=== PATIENT | female | born 1985 | race Caucasian/White ===

== ENCOUNTER 2018-06-20 13:00 | Emergency (ER) | payer SELFPAY ==
[2018-06-20] MEDS ORDERED: ONDANSETRON HCL INJ/PF 4 MG/2 ML SDV IV ONE (14:53)
[2018-06-20] MEDS ORDERED: KETOROLAC TROMETHAMINE INJ/PF 30 MG/1 ML SDV IV ONE (14:53)
[2018-06-20] MEDS ORDERED: NORMAL SALINE 1000 ML 1,000 ML IV ONE ×2 (14:53→16:52)
--- NOTE | 2018-06-20 14:55 | ER Document Report ---
ED Medical Screen (RME) - General Chief Complaint: Nausea/Vomiting Stated Complaint: VOMITING Time Seen by Provider: 06/20/18 14:50 Notes: 32 years old female with history of chronic low back pain take Percocet took one last night presents today with frontal headache just prior to arrival associated with nausea vomiting vomiting brownish liquid. Multiple times. And also had a bowel movement which was dark brown. Examination by large benign. In my opinion I think she is constipated TRAVEL OUTSIDE OF THE [place] IN LAST 30 DAYS: No - Related Data Allergies/Adverse Reactions: No Known Allergies Allergy (Unverified 06/27/15 13:16) Past Medical History - Social History Chew tobacco use (# tins/day): No Frequency of alcohol use: Rare Drug Abuse: None Renal/ Medical History: Denies: Hx Peritoneal Dialysis Past Surgical History: Reports: Hx Cholecystectomy, Hx Gynecologic Surgery - leep procedure, Hx Oral Surgery - Immunizations Immunizations up to date: Yes Hx Diphtheria, Pertussis, Tetanus Vaccination: Yes Physical Exam - Vital signs Vitals: Temp Pulse Resp BP Pulse Ox 97.4 F 69 16 110/60 100 06/20/18 13:25 06/20/18 13:25 06/20/18 13:25 06/20/18 13:25 06/20/18 13:25 Course - Vital Signs Vital signs: Temp Pulse Resp BP Pulse Ox 97.4 F 69 16 110/60 100 06/20/18 13:25 06/20/18 13:25 06/20/18 14:44 06/20/18 13:25 06/20/18 13:25 Doctor's Discharge - Discharge Referrals: SHOLA WILKES FNP [Primary Care Provider] - Follow up as needed
[2018-06-20 15:30] LABS: ABSOLUTE LYMPHOCYTES (AUTO) 1.3 10^3/uL (0.5-4.7); ABSOLUTE MONOCYTES (AUTO) 0.3 10^3/uL (0.1-1.4); ABSOLUTE NEUT (AUTO) 12.5 10^3/uL (1.7-8.2); BASOPHILS % (AUTO) 0.1 % (0-2); EOSINOPHILS % (AUTO) 0.1 % (0-6); HEMATOCRIT 38.6 % (36.0-47.0); HEMOGLOBIN 13.5 g/dL (12.0-15.5); LYMPHOCYTES % (AUTO) 9.5 % (13-45); MEAN CORPUSCULAR HEMOGLOBIN 30.7 pg (27.0-33.4); MEAN CORPUSCULAR HGB CONC 34.9 g/dL (32.0-36.0); MEAN CORPUSCULAR VOLUME 88 fl (80-97); MONOCYTES % (AUTO) 2.4 % (3-13); PLATELET COUNT 302 10^3/uL (150-450); RED BLOOD COUNT 4.39 10^6/uL (3.72-5.28); RED CELL DISTRIBUTION WIDTH 12.9 % (11.5-14.0); SEGMENTED NEUTROPHILS % (AUTO) 87.9 % (42-78); TOTAL CELLS COUNTED % (AUTO) 100 %; WHITE BLOOD COUNT 14.2 10^3/uL (4.0-10.5)
--- NOTE | 2018-06-20 15:36 | RADIOLOGY REPORT (SQ) ---
EXAM DESCRIPTION: KUB/ABDOMEN (SINGLE VIEW) COMPLETED DATE/TIME: 06/20/2018 3:28 pm REASON FOR STUDY: Abdominal pain COMPARISON: None. NUMBER OF VIEWS: One view. TECHNIQUE: Supine radiographic image of the abdomen acquired. LIMITATIONS: None. FINDINGS: BOWEL GAS PATTERN: Normal bowel gas pattern. No dilated loops. CALCIFICATIONS: No suspicious calcifications. Scattered pelvic phleboliths. SOFT TISSUES: No gross mass or suggestion of organomegaly. HARDWARE: Intrauterine device overlies pelvis. Prior cholecystectomy. BONES: No acute fracture. No worrisome bone lesions. OTHER: No other significant finding. IMPRESSION: No evidence of acute intra-abdominal/pelvic process. TECHNICAL DOCUMENTATION: JOB ID: [id number] [employer]- All Rights Reserved Reading location - IP/workstation name: [email or web address]
[2018-06-20 15:48] LABS: APPEARANCE,URINE SLIGHTLY-CLOUDY; BILIRUBIN,URINE NEGATIVE (NEGATIVE); COLOR,URINE YELLOW; GLUCOSE, URINE NEGATIVE (NEGATIVE); KETONES,URINE 20 mg/dL (NEGATIVE); LEUKOCYTE ESTERASE,URINE NEGATIVE (NEGATIVE); NITRITE,URINE NEGATIVE (NEGATIVE); PROTEIN,URINE NEGATIVE (NEGATIVE); URINE SPECIFIC GRAVITY 1.029; UROBILINOGEN,URINE NEGATIVE mg/dL (<2.0)
[2018-06-20 15:57] LABS: ALANINE AMINOTRANSFERASE 26 U/L (9-52); ALBUMIN 4.7 g/dL (3.5-5.0); ALKALINE PHOSPHATASE 95 U/L (38-126); ANION GAP 15 (5-19); ASPARTATE AMINO TRANSFERASE 22 U/L (14-36); BILIRUBIN,DIRECT 0.2 mg/dL (0.0-0.4); BILIRUBIN,TOTAL 0.6 mg/dL (0.2-1.3); BLOOD UREA NITROGEN 11 mg/dL (7-20); CALCIUM 9.3 mg/dL (8.4-10.2); CARBON DIOXIDE 28 mmol/L (22-30); CHLORIDE 101 mmol/L (98-107); GLUCOSE 113 mg/dL (75-110); LIPASE 98.5 U/L (23-300); SODIUM 143.7 mmol/L (137-145); TOTAL PROTEIN 7.5 g/dL (6.3-8.2)
[2018-06-20 16:09] LABS: URINE AMPHETAMINES SCREEN NEGATIVE; URINE BARBITURATES SCREEN NEGATIVE; URINE BENZODIAZEPINES SCREEN NEGATIVE; URINE COCAINE SCREEN NEGATIVE; URINE MARIJUANA (THC) SCREEN NEGATIVE; URINE METHADONE SCREEN NEGATIVE; URINE PHENCYCLIDINE SCREEN NEGATIVE
--- NOTE | 2018-06-20 16:59 | ER Document Report ---
ED General - General Chief Complaint: Nausea/Vomiting Stated Complaint: VOMITING Time Seen by Provider: 06/20/18 14:50 Notes: Patient is a 32-year-old female presents to the emergency department complaining of a frontal headache, dizziness and nausea. Patient states her headache started this morning and she vomited a total of 8 times. Patient is denying any blood in her emesis. Patient is denying diarrhea but does states she had a "hard poop". Patient states her stool is black in color. Patient states she did take Pepto-Bismol 3 days ago for a "upset stomach." Patient denies fever, URI symptoms, chest pain, shortness of breath. Patient denies any abdominal pain. States she only feels nauseated. Past medical history: Chronic back pain Medications: Percocet, Mirena IUD Allergies: None TRAVEL OUTSIDE OF THE [place] IN LAST 30 DAYS: No - Related Data Allergies/Adverse Reactions: No Known Allergies Allergy (Unverified 06/27/15 13:16) Past Medical History - General Information source: Patient - Social History Smoking Status: Never Smoker Chew tobacco use (# tins/day): No Frequency of alcohol use: Rare Drug Abuse: None Family History: Arthritis, CAD, CVA, DM, Hyperlipidemia, Hypertension, Malignancy, Thyroid Disfunction Patient has suicidal ideation: No Patient has homicidal ideation: No Renal/ Medical History: Denies: Hx Peritoneal Dialysis Past Surgical History: Reports: Hx Cholecystectomy, Hx Gynecologic Surgery - leep procedure, Hx Oral Surgery - Immunizations Immunizations up to date: Yes Hx Diphtheria, Pertussis, Tetanus Vaccination: Yes Review of Systems - Review of Systems Constitutional: See HPI EENT: See HPI Cardiovascular: See HPI Respiratory: See HPI Gastrointestinal: See HPI Genitourinary: denies: Burning, Dysuria, Discharge, Urgency, Retention Female Genitourinary: See HPI Musculoskeletal: No symptoms reported Skin: No symptoms reported Hematologic/Lymphatic: No symptoms reported Neurological/Psychological: See HPI Physical Exam - Vital signs Vitals: Temp Pulse Resp BP Pulse Ox 97.4 F 69 16 110/60 100 06/20/18 13:25 06/20/18 13:25 06/20/18 13:25 06/20/18 13:25 06/20/18 13:25 - Notes Notes: GENERAL: Alert, interacts well. No acute distress. HEAD: Normocephalic, atraumatic. EYES: Pupils equal, round, and reactive to light. Extraocular movements intact. ENT: Oral mucosa moist, tongue midline. NECK: Full range of motion. Supple. Trachea midline. LUNGS: Clear to auscultation bilaterally, no wheezes, rales, or rhonchi. No respiratory distress. HEART: Regular rate and rhythm. No murmur ABDOMEN: Obese soft, non-tender. Non-distended. Bowel sounds present in all 4 quadrants. EXTREMITIES: Moves all 4 extremities spontaneously. No edema, normal radial and dorsalis pedis pulses bilaterally. No cyanosis. BACK: no cervical, thoracic, lumbar midline tenderness. No saddle anesthesia, normal distal neurovascular exam. No CVA tenderness bilaterally NEUROLOGICAL: Alert and oriented x3. Normal speech. cranial nerves II through XII grossly intact PSYCH: Normal affect, normal mood. SKIN: Warm, dry, normal turgor. No rashes or lesions noted. Course - Re-evaluation Re-evalutation: 06/20/18 16:57 Patient had already been treated with Toradol and Zofran, a liter of normal saline solution prior to my examination. Patient states she no longer has a headache and no longer feels nausea. Patient states she has not tried to eat or drink something. Discussed with patient her black stools could be from the use of Pepto-Bismol. Also discussed black stools could be from internal bleeding. Patient agrees to a rectal exam with guaiac occult stool. Rectal exam reveals no obvious fissures, no internal or external hemorrhoids seen or felt. Patient's specific gravity is 1.029. A second liter of normal saline solution fluid ordered in the emergency room. 06/20/18 16:59 Laboratory work reveals a leukocytosis of 14.2 which could be because the patient's vomiting. Reveals no electrolyte abnormalities, no anemia. No signs of urinary tract infection on urine. KUB shows no signs of obstruction. Patient states she overall feels a whole lot better. Patient was given a PO trial in the emergency room and did not vomit. 06/20/18 17:42 Occult stool was negative. Discussed black stools likely from Pepto-Bismol. Patient remains non-tachycardic, not hypotensive. Patient states she no longer has a headache and is no longer nauseated. Patient was able to p.o. liquids in the emergency room. Close return precautions discussed - Vital Signs Vital signs: Temp Pulse Resp BP Pulse Ox 97.4 F 69 16 110/60 100 06/20/18 13:25 06/20/18 13:25 06/20/18 14:44 06/20/18 13:25 06/20/18 13:25 - Laboratory Result Diagrams: 06/20/18 15:09 06/20/18 15:09 Laboratory results interpreted by me: 06/20/18 06/20/18 06/20/18 15:09 15:09 15:09 WBC 14.2 H Seg Neutrophils % 87.9 H Lymphocytes % 9.5 L Monocytes % 2.4 L Absolute Neutrophils 12.5 H Creatinine 0.51 L Glucose 113 H Urine Ketones 20 H Discharge - Discharge Clinical Impression: Headache Qualifiers: Headache type: other headache syndrome Qualified Code(s): G44.89 - Other headache syndrome Nausea & vomiting Qualifiers: Vomiting type: unspecified Vomiting Intractability: non-intractable Qualified Code(s): R11.2 - Nausea with vomiting, unspecified Condition: Stable Disposition: HOME, SELF-CARE Instructions: Vomiting ([facility]), Intravenous (IV) Fluids ([facility]), Antinausea Medication ([facility]), Headache ([facility]) Additional Instructions: You were seen and treated in the emergency department for a headache, nausea, vomiting. Your urine did show signs of dehydration which is why you are treated with fluids. Please make sure you take antinausea medications as prescribed. Please make an appoint with your primary care provider in the next 24-48 hours. Please return to the emergency room for any other concerning symptoms. Prescriptions: Ondansetron [Zofran Odt 4 mg Tablet] 1 - 2 tab PO Q4H PRN #15 tab.rapdis PRN Reason: For Nausea/Vomiting Referrals: SHOLA WILKES FNP [NURSE PRACTITIONER] - Follow up as needed
[2018-06-20 18:49] VITALS: BP 105/69
== END 2018-06-20 18:48 | disposition home or self-care (01) ==
LOC: ER 13:00
DX: G44.89 Other headache syndrome (principal); R11.2 Nausea with vomiting, unspecified; R42 Dizziness and giddiness; R19.5 Other fecal abnormalities; D72.829 Elevated white blood cell count, unspecified; M54.9 Dorsalgia, unspecified; G89.29 Other chronic pain; Z79.891 Long term (current) use of opiate analgesic; Z97.5 Presence of (intrauterine) contraceptive device; Z90.49 Acquired absence of other specified parts of digestive tract
CPT/HCPCS: 99284; 96361; 96374; 96375; 36415; 83690; 85025; 82272; 81025; 80053; 81001; 80307; 74018; J1885; J2405; J7030